=== PATIENT | male | born 1970 | race Caucasian/White ===

== ENCOUNTER → 2016-11-28 | Outpatient (CLI) | payer OTHER ==
--- NOTE | 2016-11-28 13:39 | RAD ---
CT of the neck without contrast, 11/28/2016: History: Right upper neck and face swelling, possible salivary duct calculus Noncontrast scans were obtained as requested. The parotid and submandibular glands are symmetric. No mass or dense calculus is seen. No calculus is seen along the course of either parotid duct. The laryngeal region is unremarkable. The thyroid gland shows no abnormality. Several small bilateral cervical lymph nodes are seen without evidence of pathologic enlargement. 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 There are mild scattered degenerative changes in the cervical spine. IMPRESSION: No salivary gland abnormality or ductal calculus is identified. PQRS Compliance Statement: One or more of the following individualized dose reduction techniques were utilized for this examination: 1. Automated exposure control 2. Adjustment of the mA and/or kV according to patient size 3. Use of iterative reconstruction technique
== END | disposition home or self-care (01) ==
LOC: CT 12:39
PROVIDERS: ATTEND Nurse Practitioner Family
DX: R22.1 Localized swelling, mass and lump, neck (principal)
CPT/HCPCS: 70490